=== PATIENT | male | born 1980 | race Caucasian/White ===

== ENCOUNTER 2017-05-04 19:31 | Emergency (ER) | payer OTHER ==
[2017-05-04 19:35] VITALS: TEMP 98.2
[2017-05-04] MEDS ORDERED: traMADol 50 MG TAB PO ONE (19:51)
--- NOTE | 2017-05-04 19:55 | EDPHY ---
H & P Time Seen by Provider: 05/04/17 20:01 HPI/ROS: HPI: Mr. Gunn is a 36 yrs, male who presents with Chief Complaint: Sinus pressure Location: Sinus Quality: Pressure Duration: Greater than 1 week Signs and Symptoms: Positive nasal congestion, positive green nasal discharge, bilateral sinus pressure, denies headache, denies fever, denies sore throat, left ear fullness Timing: Constant, worsening Severity: Moderate Context: Patient presents with complaints of sinus infection. Reports that his young child had an upper respiratory infection approximately 1-2 weeks ago that her insurance to an ear infection and required antibiotics. Shortly after he began to experience a runny nose sinus congestion and pressure that is gradually worsening despite taking decongestants, using a Neti pot. Modifying Factors: DayQuil NyQuil with transient really Comment: ROS: Eyes: No blurred vision Respiratory: No shortness of breath, no cough Cardiovascular: No chest pain Gastrointestinal: No nausea, no vomiting no diarrhea Genitourinary: No dysuria Extremities: No myalgias Neurologic: No weakness, no numbness Skin: No rashes Hematologic: No bruising, no bleeding MEDICAL/SURGICAL HISTORY: Generally healthy. Denies surgical history. Social History: . Has small children. Smoking Status: Current some day smoker Constitutional: Initial Vital Signs Temperature (C) 36.8 C 05/04/17 19:33 Heart Rate 80 05/04/17 19:33 Respiratory Rate 18 05/04/17 19:33 Blood Pressure 162/99 H 05/04/17 19:33 O2 Sat (%) 96 05/04/17 19:33 O2 Delivery Mode Room Air Allergies/Adverse Reactions: No Known Allergies Allergy (Unverified 12/20/15 09:17) Home Medications: Medication Instructions Recorded Azithromycin [Zithromax] 250 mg PO DAILY #6 tab 05/04/17 Fluticasone Nasal [Flonase Nasal 2 sprays NASAL DAILY #1 btl 05/04/17 [place] (RX)] Medical Decision Making ED Course/Re-evaluation: Oral medication Afebrile. No systemic signs. Symptoms have been greater than 10 days; bacterial infection suspected Patient was resistant to Augmentin due to GI upset. Denies actual allergy to medication. Requests Zithromax Patient given Flonase and Zithromax Departure - Departure Disposition: Home, Routine, Self-Care Clinical Impression: Acute bacterial sinusitis Condition: Good Instructions: Sinusitis (ED) Additional Instructions: Continue to take pseudoephedrine every 6 hours as needed for nasal congestion. Take Tylenol and/or ibuprofen as needed for pain. Continue to use [place] pot as needed. Referrals: CIELO ZABALA [Primary Care Provider] - 2-3 days, if not improved Prescriptions: Azithromycin [Zithromax] 250 mg PO DAILY #6 tab Fluticasone Nasal [Flonase Nasal [place] (RX)] 2 sprays NASAL DAILY #1 btl
[2017-05-04 20:50] VITALS: BP 152/90; PULSE 76; RESP 14; O2SAT 95
== END 2017-05-04 20:48 | disposition home or self-care (01) ==
DX: J01.90 Acute sinusitis, unspecified (principal); F17.200 Nicotine dependence, unspecified, uncomplicated

== ENCOUNTER 2017-12-22 12:32 | Emergency (ER) | payer OTHER ==
--- NOTE | 2017-12-22 13:34 | EDPHY ---
H & P Smoking Status: Former smoker Time Seen by Provider: 12/22/17 12:52 HPI/ROS: CHIEF COMPLAINT: Left shoulder injury HISTORY OF PRESENT ILLNESS: 37-year-old male presents to the emergency department with injury to his left shoulder. The patient was snowboarding and states that it dislocated. He was able to relocated himself. This has happened before. He had surgery on his left shoulder 2 years ago to repair his labrum secondary to dislocation. The patient states that his shoulders back into place, however it still does not feel right. He still complains of pain in his left shoulder. He is right-hand dominant. Denies hitting his head or losing consciousness. Denies any other trauma or injury. ROS: Denies numbness or tingling in his fingers, pain in his neck, left elbow or wrist. (Acacia Tyler) Past Medical/Surgical History: Left shoulder dislocation with surgical repair 2 years ago (Acacia Tyler) Social History: (Acacia Tyler) Physical Exam: On examination the patient has no obvious deformity noted to the left shoulder. He is diffusely tender to palpate in the humeral head as well as specially the posterior aspect of the humeral head. No palpable crepitus or other bony abnormality. He has normal sensation to light touch with normal 2 point discrimination. Strong radial pulse at the left wrist. Unable to internally rotate his left shoulder. Full range of motion of his left elbow and left wrist. Cervical spine nontender to palpate. (Acacia Tyler) Constitutional: Initial Vital Signs Temperature (C) 36.8 C 12/22/17 12:38 Heart Rate 73 12/22/17 12:38 Respiratory Rate 16 12/22/17 12:38 Blood Pressure 125/88 H 12/22/17 12:38 O2 Sat (%) 98 12/22/17 12:38 O2 Delivery Mode Room Air Allergies/Adverse Reactions: No Known Allergies Allergy (Verified 12/22/17 12:37) Home Medications: Medication Instructions Recorded oxyCODONE IR [Oxycodone Ir (*)] 5 mg PO Q8 PRN #11 tab 12/22/17 MDM/Departure - MDM Imaging: I viewed and interpreted images myself - MDM Procedures: Patient was placed in a sling and examined post application in good placement with normal GRINDER SET UP OPERATOR EXTERNAL. (Acacia Tyler) Medications Given: Discontinued Medications Oxycodone/Acetaminophen (Percocet 5/325) 1 tab PO EDNOW ONE Stop: 12/22/17 14:04 Last Admin: 12/22/17 14:14 Dose: 1 tab ED Course/Re-evaluation: 37-year-old male presents to the emergency department with left shoulder injury. Patient has a history of previous dislocation of the left shoulder as well as surgical repair. Patient reportedly had a dislocation of his left shoulder today which week was able to relocate although he states that it still does not feel normal. X-rays were obtained which revealed no obvious fracture. There was an abnormality of the glenoid which could represent postsurgical changes. The patient was given orthopedic referral. (Acacia Tyler) The patient was evaluated and managed by the physician assistant operator. I have reviewed this chart and I agree with the findings and plan of care as documented , as indicated by my signature. I am the secondary supervising physician. ( Courtney Banda) - Depart Disposition: Home, Routine, Self-Care Clinical Impression: Dislocation of left shoulder joint Qualifiers: Encounter type: initial encounter Qualified Code(s): S43.005A - Unspecified dislocation of left shoulder joint, initial encounter Sprain of left shoulder Qualifiers: Encounter type: initial encounter Shoulder sprain type: unspecified sprain Qualified Code(s): S43.402A - Unspecified sprain of left shoulder joint, initial encounter Condition: Good Instructions: Shoulder Dislocation (ED), Shoulder Sprain (ED) Additional Instructions: Sling for comfort and support. Ibuprofen 600 mg every 8 hr as needed for pain. Oxycodone for severe pain to help you sleep at night. Follow up with orthopedic surgeon this week to recheck. Tell them that you were seen in the emergency department and told to be seen for follow-up. Prescriptions: oxyCODONE IR [Oxycodone Ir (*)] 5 mg PO Q8 PRN #11 tab PRN Reason: P.r.n. Severe pain Referrals: Awais Galeana MD [Medical Doctor] - 2-3 days without fail (Orthopedic surgeon you have seen in the past) Kyleigh Bianchi MD [Medical Doctor] - 2-3 days without fail (Orthopedic surgeon on- call)
[2017-12-22] MEDS ORDERED: OXYCODONE/APAP 5/325 TAB PO ONE (14:03)
[2017-12-22 14:19] VITALS: BP 119/75
== END 2017-12-22 14:19 | disposition home or self-care (01) ==
DX: S43.005A Unspecified dislocation of left shoulder joint, initial encounter (principal); S43.402A Unspecified sprain of left shoulder joint, initial encounter; Z87.891 Personal history of nicotine dependence; X58.XXXA Exposure to other specified factors, initial encounter; Y99.8 Other external cause status; Y93.23 Activity, snow (alpine) (downhill) skiing, snowboarding, sledding, tobogganing and snow tubing
CPT/HCPCS: A4565